=== PATIENT | female | born 1965 | race Asian ===

== ENCOUNTER 2021-07-28 00:25 | Emergency (ER) | payer MEDICAID ==
[~2021-07-28] VITALS: Ht 165.1 cm; Wt 56.7 kg
[2021-07-28 00:30] VITALS: BP 148/80
[2021-07-28] MEDS ORDERED: ACETAMINOPHEN 325MG TABLET PO ONE (01:00)
== END 2021-07-28 02:59 | disposition home or self-care (01) ==
LOC: ER 00:44
DX: S16.1XXA Strain of muscle, fascia and tendon at neck level, initial encounter (principal); E78.00 Pure hypercholesterolemia, unspecified; H40.9 Unspecified glaucoma; V43.62XA Car passenger injured in collision with other type car in traffic accident, initial encounter; Y93.89 Activity, other specified; Y92.488 Other paved roadways as the place of occurrence of the external cause
CPT/HCPCS: 99284

== ENCOUNTER 2025-01-11 11:27 | Emergency (ER) | payer MEDICAID, MEDICARE ==
[~2025-01-11] VITALS: Ht 162.6 cm; Wt 63.0 kg
[2025-01-11 11:34] VITALS: O2SAT 97
[2025-01-11] MEDS: ACETAMINOPHEN 325MG TABLET PO ONE (12:06)
[2025-01-11 13:37] VITALS: BP 115/68; PULSE 65; RESP 14; TEMP 36.5; O2SAT 99
== END 2025-01-11 13:39 | disposition home or self-care (01) ==
LOC: ER 11:27
DX: S09.90XA Unspecified injury of head, initial encounter (principal); E78.00 Pure hypercholesterolemia, unspecified; W22.8XXA Striking against or struck by other objects, initial encounter; Y93.89 Activity, other specified; Y92.89 Other specified places as the place of occurrence of the external cause; Y99.8 Other external cause status
CPT/HCPCS: 73030; 99284